=== PATIENT | female | born 1940 | race Caucasian/White ===

== ENCOUNTER 2020-01-29 23:29 | Emergency (ER) | payer MEDICARE, BC ==
[2020-01-29] MEDS ORDERED: Metoclopramide HCl 10 MG/2 ML VIAL ONE (23:53)
[2020-01-29] MEDS ORDERED: diphenhydrAMINE 50 MG/ML VIAL ONE (23:53)
--- NOTE | 2020-01-30 07:44 | CT ---
PRELIMINARY REPORT/[facility]/EMERGENCY AFTER HOURS PROCEDURE Receipt of this report by the clinical staff was confirmed with Angela Rogers MD by Mariah Suarez cca on Jan 30, 2020 00:34:00 CDT. Addendum electronically signed by Tamar Suarez on January 30, 2020 12:35:33 AM CDT EXAM: CT BRAIN WO CON HISTORY: ER 12...PT REPORTS SHE HAD A THROBBING HEADACHE 3 HOURS AGO, AND STATES IT "FEELS LIKE HER O THER TIA". PT DENIES ANY WEAKNESS, APHASIA, VISION CHANGES OR OTHER STROKE LIKE SYMPTOMS. NO DEFICITS IN TRIAGE. COMPARISON: None FINDINGS: Ill-defined periventricular white matter hypodensities bilaterally, greatest at the left posterior pa rietal, left frontal and bilateral posterior mcmahon radiata. Teixeira-white matter differentiation is grossly preserved. Basal ganglia calcifications. No intraparenchymal, intraventricular, or extra-axial hemorrhage. No extra-axial fluid collections. No hydrocephalus. The contents of the orbits are symmetric across the midline. Paranasal sinuses and mastoids are clear. Atherosclerotic vascular calcifications at the intracranial ICAs. 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 Given this heterogeneity, superimposed focal acute ischemia is not excluded. Consider further evaluation with MRI as clinically indicated. ELECTRONICALLY SIGNED BY: Nettie Luis MD Jan 30, 2020 12:26:02 AM CDT This report is intended for review by the ordering physician only, in accordance of law. If you recei ve this report in error, please call [facility] at [phone]. FINAL REPORT Exam: Head CT without contrast HISTORY: Headache. COMPARISON: none FINDINGS: Hemorrhage: No intraparenchymal hemorrhage or extra-axial hematoma. Brain parenchyma: Cortical teixeira-white matter differentiation is preserved. No mass effect or midline shift. Basilar cisterns are patent.Small vessel ischemic changes white matter. Calcification/mineralization in the deep teixeira matter structures. Ventricular system: Ventricles and sulci are patent and symmetric. Calvarium: Intact. Sinuses and mastoid air cells: Adequate aeration. IMPRESSION: 1. This report is in agreement with the preliminary report by [facility]. 2. No acute intracranial process. Chronic small vessel ischemic changes of white matter. Nonemergent brain MRI if clinically warranted. Transcribed Date/Time: 01/30/2020 8:30 AM
== END 2020-01-30 01:18 | disposition home or self-care (01) ==
LOC: ERS 23:29
DX: R51 Headache (principal); I48.91 Unspecified atrial fibrillation; E78.5 Hyperlipidemia, unspecified; I10 Essential (primary) hypertension; Z79.82 Long term (current) use of aspirin; Z86.73 Personal history of transient ischemic attack (TIA), and cerebral infarction without residual deficits; Z79.01 Long term (current) use of anticoagulants; Z79.899 Other long term (current) drug therapy
CPT/HCPCS: 70450; 96374; 96375; J1200; J2765

== ENCOUNTER 2022-07-09 12:49 | Observation (INO) | payer MEDICARE, BC ==
[2022-07-09 13:53] LABS: #Lymphocytes 0.9 thou/uL (1.20-3.40); #Monocytes 0.5 thou/uL (0.11-0.59); #Neutrophils 9.8 thou/uL (1.40-6.50); %Eosinophils 0.1 % (0.0-10.0); %Lymphocytes 8.2 % (21.0-51.0); %Monocytes 4.5 % (0.0-10.0); %Neutrophils 87.2 % (42.0-75.0); Hemoglobin 13.4 g/dL (12.0-16.0); Mean Corpuscular HGB CONC 33.7 g/dL (32.0-36.0); Mean Corpuscular Hemoglobin 31.5 pg (27.0-31.0); Mean Corpuscular Volume 93.3 fL (78.0-98.0); Mean Platelet Volume 9.7 fL (7.4-10.4); Platelet Count 162 thou/uL (130-400); RBC Distribution Width 12.7 % (11.5-14.5); Red Blood Cell (RBC) Count 4.26 mill/uL (4.20-5.40); White Blood Cell (WBC) Count 11.2 thou/uL (4.8-10.8)
[2022-07-09 13:55] LABS: Bacteria/HPF None Seen HPF (None Seen); Bilirubin Negative (Negative); Blood, Urine 2+ (Negative); Clarity Turbid (Clear); Glucose, Urine (Dipstick) Normal (Negative); Ketone, Urine 10 mg/dL (Negative); Leukocyte Negative Leu/uL (Negative); Nitrite Negative (Negative); Protein, Urine (Dipstick) 200 mg/dL (Neg-Trace); RBC/HPF 0-3 HPF (0-3); Specific Gravity, Urine 1.022 (1.002-1.036); Squamous Epithelial 0-3 HPF (0-3); Urobilinogen Normal mg/dL (Less than 2); WBC/HPF 0-3 HPF (0-3); pH, Urine 5.5 (5.0-9.0)
[2022-07-09 13:58] LABS: Amphetamine Not Detected (NotDetected); Barbiturates Screen Not Detected (NotDetected); Benzodiazepine Screen Detected (NotDetected); Cocaine Metabolite Screen Not Detected (NotDetected); Methadone Not Detected (NotDetected); Methamphetamine Not Detected (NotDetected); Opiate Screen Not Detected (NotDetected); Oxycodone Screen Not Detected (NotDetected); Phencyclidine (PCP) Not Detected (NotDetected); THC/Cannabinoid Screen Not Detected (NotDetected); Tricyclic Screen Not Detected (NotDetected)
[2022-07-09 14:07] LABS: INR-International Normal Ratio 1.4; Prothrombin Time 17.2 sec (12.0-14.7)
[2022-07-09 14:11] LABS: ALT (SGPT) 55 U/L (8-55); AST (SGOT) 45 U/L (5-34); Albumin 4.3 g/dL (3.4-4.8); Alkaline Phosphatase 84 U/L (40-110); Anion Gap 20 mmol/L (10-20); BUN (Urea Nitrogen) 28 mg/dL (9.8-20.1); Bilirubin, Total 1.9 mg/dL (0.2-1.2); Calc. Creatinine Clearance 0 mL/min (70-130); Calcium 9.4 mg/dL (7.8-10.44); Carbon Dioxide 15 mmol/L (23-31); Chloride 105 mmol/L (98-107); Estimated GFR 43; Globulin 2.8 g/dL (2.4-3.5); Glucose 153 mg/dL (83-110); Potassium 4.4 mmol/L (3.5-5.1); Protein, Total 7.1 g/dL (5.8-8.1); Sodium 136 mmol/L (136-145)
[2022-07-09 14:12] LABS: ALT (SGPT) 56 U/L (8-55); AST (SGOT) 49 U/L (5-34); Acetaminophen Less than 10.0 mcg/mL (10.0-30.0); Albumin 4.4 g/dL (3.4-4.8); Alcohol Less than 10 mg/dL (Less than 10); Alkaline Phosphatase 86 U/L (40-110); Anion Gap 22 mmol/L (10-20); BUN (Urea Nitrogen) 28 mg/dL (9.8-20.1); Bilirubin, Total 1.9 mg/dL (0.2-1.2); Calc. Creatinine Clearance 0 mL/min (70-130); Calcium 9.4 mg/dL (7.8-10.44); Carbon Dioxide 13 mmol/L (23-31); Chloride 106 mmol/L (98-107); Estimated GFR 44; Globulin 2.3 g/dL (2.4-3.5); Glucose 151 mg/dL (83-110); Potassium 4.7 mmol/L (3.5-5.1); Protein, Total 6.7 g/dL (5.8-8.1); Salicylate Less than 8.0 mg/dL (15.0-30.0); Sodium 136 mmol/L (136-145)
[2022-07-09 14:42] LABS: CKMB 5.4 ng/mL (0-6.6)
[2022-07-09] MEDS ORDERED: Cefepime 2 GM VIAL ONE (15:12)
[2022-07-09] MEDS ORDERED: Vancomycin 1 GM/200 ML BAG ONE (15:12)
[2022-07-09 16:46] LABS: Lactic Acid 2.9 mmol/L (0.5-2.2)
[2022-07-09 16:54] LABS: Troponin I 0.153 ng/mL (< 0.028)
[2022-07-09 17:38] LABS: SARS-CoV-2 NAA Rapid Test Not Detected (NotDetected)
[2022-07-09 20:07] VITALS: BMI 26.5
[2022-07-09] MEDS ORDERED: Vancomycin HCl 1 GM in Sodium Chloride 0.9% 250 ML 250 ML IVPB SCH (21:00)
[2022-07-09] MEDS ORDERED: cefTRIAXone\\ROCEPHIN 2 GM in Sodium Chloride 0.9% 100 ML IVPB SCH (21:00)
[2022-07-09] MEDS: Apixaban 5 MG TAB PO SCH (21:59)
[2022-07-09] MEDS: Sodium Chloride 0.9% 1,000 ML IV SCH (21:59)
[2022-07-09] MEDS ORDERED: Lorazepam 1 MG TAB PO PRN (22:01)
[2022-07-10] MEDS ORDERED: Labetalol HCl 100 MG/20 ML VIAL SLOW IVP PRN (01:23)
[2022-07-10 01:35] LABS: #Lymphocytes 1.7 thou/uL (1.20-3.40); #Monocytes 1.6 thou/uL (0.11-0.59); #Neutrophils 11.4 thou/uL (1.40-6.50); %Basophils 0.2 % (0.0-1.0); %Eosinophils 0.2 % (0.0-10.0); %Lymphocytes 11.6 % (21.0-51.0); %Monocytes 10.8 % (0.0-10.0); %Neutrophils 77.1 % (42.0-75.0); Hemoglobin 13.2 g/dL (12.0-16.0); Mean Corpuscular HGB CONC 34.1 g/dL (32.0-36.0); Mean Corpuscular Hemoglobin 32.1 pg (27.0-31.0); Mean Corpuscular Volume 94.1 fL (78.0-98.0); Mean Platelet Volume 9.4 fL (7.4-10.4); Platelet Count 153 thou/uL (130-400); RBC Distribution Width 12.9 % (11.5-14.5); Red Blood Cell (RBC) Count 4.13 mill/uL (4.20-5.40); White Blood Cell (WBC) Count 14.8 thou/uL (4.8-10.8)
[2022-07-10] MEDS ORDERED: Carvedilol 25 MG TAB PO SCH ×2 (01:45→09:00)
[2022-07-10 02:10] LABS: Phosphorus 3.5 mg/dL (2.3-4.7)
[2022-07-10 02:14] LABS: ALT (SGPT) 54 U/L (8-55); AST (SGOT) 47 U/L (5-34); Albumin 3.9 g/dL (3.4-4.8); Alkaline Phosphatase 96 U/L (40-110); Anion Gap 20 mmol/L (10-20); BUN (Urea Nitrogen) 29 mg/dL (9.8-20.1); Calc. Creatinine Clearance 43 mL/min (70-130); Calcium 8.9 mg/dL (7.8-10.44); Carbon Dioxide 12 mmol/L (23-31); Chloride 106 mmol/L (98-107); Estimated GFR 44; Globulin 2.6 g/dL (2.4-3.5); Glucose 138 mg/dL (83-110); Magnesium 1.8 mg/dL (1.6-2.6); Potassium 4.2 mmol/L (3.5-5.1); Protein, Total 6.5 g/dL (5.8-8.1); Sodium 134 mmol/L (136-145)
[2022-07-10] MEDS ORDERED: Magnesium 2 GM/50 ML(in water) 2 GM in Premix Bag 1 BAG IVPB SCH (04:45)
[2022-07-10] MEDS: Sodium Chloride 0.9% 1,000 ML IV SCH ×2 (05:04→15:18)
[2022-07-10] MEDS ORDERED: Sacubitril 49 MG/Valsartan 51 MG TABLET PO SCH (09:00)
[2022-07-10] MEDS ORDERED: Atenolol 50 MG TAB PO SCH (09:00)
[2022-07-10] MEDS ORDERED: Aspirin 81 mg Enteric Coated Tablet PO SCH (09:00)
[2022-07-10] MEDS ORDERED: Non-Formulary Item 1 EACH (Sacubitril/Valsartan [Entresto 97 Mg-103 Mg Tablet] 1 EACH Tab PO SCH (09:00)
[2022-07-10] MEDS: Apixaban 5 MG TAB PO SCH (09:58)
[2022-07-10] MEDS: hydrALAZINE 25 MG TAB PO SCH ×2 (09:59→15:17)
[2022-07-10] MEDS ORDERED: Vancomycin 1 GM in Premix Bag 1 BAG IVPB SCH (15:00)
[2022-07-10 17:13] VITALS: BP 145/82; TEMP 97.8
== END 2022-07-10 18:39 | disposition home or self-care (01) ==
LOC: ERS 12:49 → SUATTDRO 12:49 → NEURO 15:50
PROVIDERS: ADMIT Family Medicine; ATTEND Family Medicine
DX: G45.9 Transient cerebral ischemic attack, unspecified (principal); D72.829 Elevated white blood cell count, unspecified; I48.91 Unspecified atrial fibrillation; N17.9 Acute kidney failure, unspecified; R77.8 Other specified abnormalities of plasma proteins; I08.3 Combined rheumatic disorders of mitral, aortic and tricuspid valves; E86.0 Dehydration; Z85.3 Personal history of malignant neoplasm of breast; Z86.73 Personal history of transient ischemic attack (TIA), and cerebral infarction without residual deficits; Z79.01 Long term (current) use of anticoagulants; Z79.899 Other long term (current) drug therapy; Z20.822 Contact with and (suspected) exposure to COVID-19
CPT/HCPCS: 51701; 70450; 70551; 71045; 80053 ×3; 80306; 80307; 82553; 82962; 83605; 83735; 84100; 84145; 84484 ×2; 85025 ×2; 85610; 85730; 87040; 87086; 87633; 87798 ×2; 93005 ×2; 93306; 94760; 96361; 96365; 96367 ×2; 96375; 96376; 97535; 99285; G0378 ×3; U0002; 36415; 36416; 81003; 81015; 93010; J0692; J0696; J3370; J3475; J3490; J7050